=== PATIENT | female | born 1990 | race Caucasian/White ===

== ENCOUNTER 2022-05-24 13:57 | Outpatient (CLI) | payer MEDICAID ==
[~2022-05-24 13:57] MED LIST: HYDR-3917 PO; IBUP-1969 PO; ONDA-8 PO; PRO40 PO
[2022-05-24 19:18] LABS: CALCIUM 9.4 mg/dL (8.4-11.0); POTASSIUM 3.9 mmol/L (3.5-5.1)
[2022-05-24 19:19] LABS: ALBUMIN 3.6 g/dL (3.4-4.8); CREATININE 0.82 mg/dL (0.55-1.30); HEMOGLOBIN 13.5 g/dL (12.0-16.0); RED BLOOD CELL COUNT(AUTO) 4.27 MIL/uL (4.2-6.2); TOTAL BILIRUBIN 0.4 mg/dL (0.0-1.0); WHITE BLOOD COUNT (AUTO) 5.6 K/uL (4.8-10.8)
[2022-05-24 19:20] LABS: HEMATOCRIT 39.8 % (36-48); MEAN CORPUSCULAR HEMOGLOBIN 32 pg (27-31); MEAN CORPUSCULAR HGB CONC 34 % (32-36); MEAN CORPUSCULAR VOLUME 93 fL (79.0-98.0); PLATELET COUNT (AUTO) 988 K/uL (130-430); RED CELL DISTRIBUTION WIDTH 13.6 % (9.0-15.0)
[2022-05-24 19:21] LABS: BAND % (MANUAL) 0 % (0-6); EOSINOPHILS % (MANUAL) 1 % (0-7); LYMPHOCYTES % (MANUAL) 40 % (20-46); MONOCYTES % (MANUAL) 3 % (0-11)
[2022-05-24 19:22] LABS: ATYPICAL LYMPHOCYTES % 5 % (0-0); BASOPHILS % (MANUAL) 0 % (0-2)
== END 2022-05-24 19:29 | disposition home or self-care (01) ==
LOC: SLB 13:57
PROVIDERS: ATTEND Family Medicine
DX: K85.90 Acute pancreatitis without necrosis or infection, unspecified (principal)
CPT/HCPCS: 36415; 80053; 83690; 85007; 85027